=== PATIENT | female | born 1965 | race Caucasian/White ===

== ENCOUNTER 2019-03-01 09:53 | Emergency (ER) | payer OTHER ==
[~2019-03-01] VITALS: Ht 167.6 cm; Wt 77.1 kg
--- NOTE | 2019-03-01 09:57 | NUR ---
Patient to ER bed 6 to gown for evaluation. Side rails up. Report given to Gilmer MCCRACKEN.
[2019-03-01 09:58] VITALS: BP_SYST 125
--- NOTE | 2019-03-01 10:04 | NUR ---
MICHELLE Coyne at bedside examining patient.
--- NOTE | 2019-03-01 10:06 | NUR ---
PT PRESENTS TO ED C/[facility] R [facility].
[2019-03-01] MEDS ORDERED: IBUPROFEN 600 MG TABLET PO ONE (10:15)
--- NOTE | 2019-03-01 10:15 | NUR ---
PT MEDICATED TOLERATED WELL.
--- NOTE | 2019-03-01 10:17 | NUR ---
BEDSIDE XRAY DONE
--- NOTE | 2019-03-01 10:55 | NUR ---
PT REPORTS PAIN RESOLVING
--- NOTE | 2019-03-01 11:01 | NUR ---
PT SPLINTED SHORTLEG POSTERIOR.PT TOLERATED WELL.
[2019-03-01 11:55] VITALS: BP_SYST 125
--- NOTE | 2019-03-01 11:55 | NUR ---
Patient given written and verbal discharge instructions and verbalizes understanding. ER MD discussed with patient the results and treatment provided. Patient in stable condition. ID arm band removed. Rx of Motrin, [place] given. Patient educated on pain management including risk of opioid addiction, that she cannot drive while taking norco and that it is constipating. Pt was advised to follow up with PMD. Pain Scale 3/10. Opportunity for questions provided and answered. Medication side effect fact sheet provided.
== END 2019-03-01 11:55 | disposition home or self-care (01) ==
LOC: SED 09:53
DX: S80.212A Abrasion, left knee, initial encounter (principal); E03.9 Hypothyroidism, unspecified; M25.571 Pain in right ankle and joints of right foot; Z88.2 Allergy status to sulfonamides; W01.0XXA Fall on same level from slipping, tripping and stumbling without subsequent striking against object, initial encounter; Y93.89 Activity, other specified; Y92.89 Other specified places as the place of occurrence of the external cause; Y99.8 Other external cause status
CPT/HCPCS: 99283